=== PATIENT | female | born 1985 | race Caucasian/White ===

== ENCOUNTER 2019-12-20 10:46 | Emergency (ER) | payer SELFPAY ==
[~2019-12-20] VITALS: Ht 162.6 cm; Wt 69.0 kg
--- NOTE | 2019-12-20 11:11 | NUR ---
FIRST CONTACT WITH PT. PT C/O DIARRHEA, BODYACHES, AND COUGHING FOR TWO DAYS. PT DENIES HAVING FLU SHOT THIS FLU SEASON. PT'S AOX4. RESPS EVEN AND UNLABORED. BP/SPO2 MONITORS IN PLACE. CALL LIGHT WITHIN REACH.
--- NOTE | 2019-12-20 11:11 | NUR ---
EDMD AT BEDSIDE TO EVALUATE AT THIS TIME.
[2019-12-20 11:40] LABS: BASOPHILS # (AUTO) 0.01 x10^3/uL (0-0.1); BASOPHILS % (AUTO) 0 % (0-1); EOSINOPHILS # (AUTO) 0.01 x10^3/uL (0-0.4); EOSINOPHILS % (AUTO) 0 % (1-7); LYMPHOCYTES # (AUTO) 0.37 x10^3/uL (1-3.4); LYMPHOCYTES % (AUTO) 6 % (22-44); MD NO; MEAN CORPUSCULAR HEMOGLOBIN 30.3 pg (27.0-34.8); MEAN CORPUSCULAR HGB CONC 34.3 g/dL (32.4-35.8); MEAN CORPUSCULAR VOLUME 88.5 fL (80-100); MEAN PLATELET VOLUME 8.4 fL (7.4-10.4); MONOCYTES % (AUTO) 8 % (2-9); NEUTROPHILS # (AUTO) 5.46 x10^3/uL (1.8-6.8); NEUTROPHILS % (AUTO) 86 % (42-75); PLATELET COUNT 239 x10^3/uL (130-400); RED CELL DISTRIBUTION WIDTH 12.6 % (9.6-15.2)
[2019-12-20 11:46] LABS: ALBUMIN 3.8 g/dL (3.4-5.0); ANION GAP 9 mmol/L (5-15); CALCIUM 8.5 mg/dL (8.5-10.1); CHLORIDE 110 mmol/L (98-107); CREATININE 0.71 mg/dL (0.55-1.02)
[2019-12-20 12:00] VITALS: BP 114/67
--- NOTE | 2019-12-20 12:00 | NUR ---
PT RESTING IN [facility]. PT'S AOX4. RESPS EVEN AND UNLABORED. BP/SPO2 MONITORS IN PLACE. CALL LIGHT WITHIN REACH.
[2019-12-20 12:03] LABS: RAPID INFLUENZA A POSITIVE (Negative)
[2019-12-20 12:04] LABS: RAPID INFLUENZA B Negative (Negative)
== END 2019-12-20 12:55 | disposition home or self-care (01) ==
LOC: ED 12:33
DX: J10.1 Influenza due to other identified influenza virus with other respiratory manifestations (principal); M79.10 Myalgia, unspecified site
CPT/HCPCS: 36415; 71046; 80048; 82040; 85025; 87400; 99284

== ENCOUNTER 2021-06-20 08:40 | Emergency (ER) | payer MEDICAID ==
[~2021-06-20] VITALS: Ht 162.6 cm; Wt 87.2 kg
[2021-06-20 10:09] VITALS: BP 110/80
--- NOTE | 2021-06-20 10:09 | NUR ---
PT AMBULATORY TO ROOM 18 W/ C/O COUGH X 2 DAYS THAT IS PRODUCTIVE. PT ALSO C/O SORE THROAT AND HOARSE VOICE. PT DENIES CP/SOB. PT RESTING ON GURNEY. NADN. MONITORS APPLIED. VSS. WARM BLANKET PROVIDED. CALL LIGHT IN REACH.
== END 2021-06-20 10:54 | disposition home or self-care (01) ==
LOC: ED 10:36
DX: B34.9 Viral infection, unspecified (principal); Z20.822 Contact with and (suspected) exposure to COVID-19; R05 Cough; R51.9 Headache, unspecified
CPT/HCPCS: 71045; 99284; U0003; U0005